=== PATIENT | female | born 1995 | race Hispanic/Latino ===

== ENCOUNTER 2019-11-30 17:19 | Inpatient (IN) | payer MEDICAID ==
[~2019-11-30] VITALS: Ht 162.6 cm; Wt 71.7 kg
[~2019-11-30 17:19] MED LIST: IRON-10 PO
[2019-11-30] MEDS ORDERED: NALOXONE HCL 0.4 MG/1 ML ML IV PRN (18:30)
[2019-11-30] MEDS ORDERED: PROMETHAZINE HCL 25 MG/ML 1ML AMPULE IM PRN (18:30)
[2019-11-30] MEDS ORDERED: ROPIVACAINE 0.2% 100ML VIAL 100 ML EP SCH (18:30)
[2019-11-30] MEDS ORDERED: LACTATED RINGERS 500 ML 500 ML IV PRN (18:30)
[2019-11-30] MEDS ORDERED: EPHEDRINE SULFATE 50 MG/ML AMPULE IVP PRN (18:30)
[2019-11-30] MEDS ORDERED: LACTATED RINGERS 1000ML 1,000 ML IV PRN (18:30)
[2019-11-30] MEDS ORDERED: MEPERIDINE-PF 50 MG/ML SYG IVP PRN (18:30)
[2019-11-30 18:42] LABS: HEMATOCRIT 32.9 % (36-48); MEAN CORPUSCULAR HEMOGLOBIN 23.3 pg (27.0-33.0); MEAN CORPUSCULAR HGB CONC 30.7 g/dL (32.0-36.0); PLATELET COUNT (AUTO) 323 K/uL (130-400); RED BLOOD CELL COUNT(AUTO) 4.33 MIL/uL (4.00-5.50); RED CELL DISTRIBUTION WIDTH 19.6 % (11.0-15.5); WHITE BLOOD COUNT (AUTO) 7.9 K/uL (4.8-10.8)
[2019-11-30 18:44] LABS: APPEARANCE,URINE Clear (CLEAR); BILIRUBIN,URINE Negative (NEGATIVE); COLOR,URINE Yellow (YELLOW); GLUCOSE, URINE (UA) Negative (NEGATIVE); KETONES,URINE Negative (NEGATIVE); LEUKOCYTE ESTERASE ,URINE Small (NEGATIVE); NITRATE,URINE Negative (NEGATIVE); OCCULT BLOOD,URINE Negative (NEGATIVE); PROTEIN,URINE Negative (NEGATIVE)
[2019-11-30 19:09] LABS: BACTERIA,URINE Rare /HPF (None Seen); RBC,URINE 0-1 /HPF (0-1); SQUAMOUS EPITHELIAL CELL,UR Few /HPF (0-2)
[2019-11-30] MEDS ORDERED: OXYTOCIN-LR 20 UNITS/1000 ML 1,000 ML IV SCH (19:30)
[2019-11-30 19:41] LABS: AMPHET/METH SCREEN,URINE NEGATIVE (NEGATIVE); BARBITURATE SCREEN, URINE NEGATIVE (NEGATIVE); BENZODIAZEPINES SCREEN,URINE NEGATIVE (NEGATIVE); CANNABINOID SCREEN,URINE POSITIVE (NEGATIVE); COCAINE SCREEN,URINE NEGATIVE (NEGATIVE); OPIATE SCREEN,URINE NEGATIVE (NEGATIVE); PHENCYCLIDINE SCREEN,URINE NEGATIVE (NEGATIVE)
[2019-11-30 19:45] VITALS: BP 116/68
[2019-11-30] MEDS ORDERED: PREN1CAP34 PO (21:43)
[2019-11-30] MEDS ORDERED: IRON-10 PO (21:43)
[2019-12-01] MEDS ORDERED: LIDOCAINE HCL 1% 20 ML VIAL INJ PRN (11:15)
[2019-12-01] MEDS ORDERED: MISOPROSTOL 200 MCG TABLET ONE (12:53)
[2019-12-01] MEDS ORDERED: METHYLERGONOVINE MALEATE 0.2 MG/1 ML ML ONE ×2 (12:54→13:12)
[2019-12-01] MEDS ORDERED: OXYTOCIN 10 USP UNITS/ML ONE ×2 (12:56→13:21)
[2019-12-01] MEDS ORDERED: TRANEXAMIC ACID 1000MG/10ML ONE (13:00)
[2019-12-01] MEDS ORDERED: CARBOPROST TROMETHAMINE 250 MCG/ML AMP IM ONE (13:01)
[2019-12-01] MEDS ORDERED: IBUPROFEN 600 MG TABLET PO PRN (13:30)
[2019-12-01] MEDS ORDERED: WITCH HAZEL 1 PAD TP PRN (13:30)
[2019-12-01] MEDS ORDERED: MEASLES/MUMPS/RUBELLA VACCINE, LIVE 0.5 ML/VIAL SQ PRN (13:30)
[2019-12-01] MEDS ORDERED: BENZOCAINE/LANOLIN/ALOE VERA 60 ML AEROSOL TP PRN (13:30)
[2019-12-01] MEDS ORDERED: OXYTOCIN-LR 20 UNITS/1000 ML 1,000 ML IV SCH (13:30)
[2019-12-01] MEDS ORDERED: DIPH,PERTUSS(ACELL),TET VAC/PF 0.5 ML VIAL IM PRN (13:30)
[2019-12-01] MEDS ORDERED: LANOLIN 30GM OINTMENT TP PRN (13:30)
[2019-12-01] MEDS ORDERED: ACETAMINOPHEN 325 MG TAB PO PRN (13:30)
[2019-12-01] MEDS ORDERED: ACETAMINOPHEN-CODEINE 300/30MG TAB PO PRN (13:30)
[2019-12-01] MEDS ORDERED: CARBOPROST TROMETHAMINE 250 MCG/ML AMP IM SCH (14:00)
[2019-12-01] MEDS ORDERED: OXYTOCIN 10 USP UNITS/ML IV SCH (14:15)
[2019-12-01] MEDS ORDERED: DIPHENOXYLATE HCL/ATROPINE 2.5/0.025 MG TAB PO PRN ×2 (14:15)
[2019-12-01] MEDS ORDERED: METHYLERGONOVINE MALEATE 0.2 MG/1 ML ML IM SCH (14:37)
[2019-12-01] MEDS ORDERED: MISOPROSTOL 200 MCG TABLET VG SCH (14:38)
[2019-12-01] MEDS: CEFAZOLIN 3GM /D5W 100ML 100 ML IV SCH ×2 (14:45→20:39)
[2019-12-01 15:45] LABS: BASOPHILS % (AUTO) 0.2 % (0.0-5.0); EOSINOPHILS % (AUTO) 0.2 % (0.0-8.0); HEMATOCRIT 28.8 % (36-48); LYMPHOCYTES % (AUTO) 5.5 % (21.0-51.0); MEAN CORPUSCULAR HEMOGLOBIN 23.9 pg (27.0-33.0); MEAN CORPUSCULAR HGB CONC 31.6 g/dL (32.0-36.0); MEAN CORPUSCULAR VOLUME 75.6 fL (79-99); MONOCYTES % (AUTO) 7.2 % (3.0-13.0); NEUTROPHILS % (AUTO) 86.4 % (40.0-77.0); PLATELET COUNT (AUTO) 289 K/uL (130-400); RED BLOOD CELL COUNT(AUTO) 3.81 MIL/uL (4.00-5.50); RED CELL DISTRIBUTION WIDTH 19.6 % (11.0-15.5); WHITE BLOOD COUNT (AUTO) 24.7 K/uL (4.8-10.8)
[2019-12-01 15:54] LABS: INR 0.88 (0.85-1.15); PARTIAL THROMBOPLASTIN TIME 29.4 SEC (26.3-35.5); PROTHROMBIN TIME 9.6 SEC (9.6-11.6)
--- NOTE | 2019-12-01 16:09 | NUR ---
SS Eval Eval deferred pending baby's UDS. SW will continue to follow.
[2019-12-01 19:51] VITALS: BP 118/74
[2019-12-01] MEDS: DOCUSATE SODIUM 100 MG CAP PO SCH (20:39)
[2019-12-01 23:35] VITALS: BP 95/55
[2019-12-02 04:32] VITALS: BP 110/59
[2019-12-02 06:47] LABS: HEMATOCRIT 22.4 % (36-48); MEAN CORPUSCULAR HEMOGLOBIN 23.9 pg (27.0-33.0); MEAN CORPUSCULAR HGB CONC 31.3 g/dL (32.0-36.0); MEAN CORPUSCULAR VOLUME 76.5 fL (79-99); RED BLOOD CELL COUNT(AUTO) 2.93 MIL/uL (4.00-5.50); RED CELL DISTRIBUTION WIDTH 19.6 % (11.0-15.5); WHITE BLOOD COUNT (AUTO) 15.8 K/uL (4.8-10.8)
[2019-12-02 07:29] VITALS: BP_SYST 118; BP_SYST 98; BP_DIAS 65; BP_DIAS 69
[2019-12-02] MEDS: DOCUSATE SODIUM 100 MG CAP PO SCH (09:28)
[2019-12-02 10:13] LABS: HEPATITIS Bs ANTIGEN SCREEN P Negative (Negative)
--- NOTE | 2019-12-02 10:40 | NUR ---
SS Referral for Positive UDS, THC TIFFANY met with pt. who reported that this is third , third delivery and named BG Aurelio Montoya. Pt. is calm, cooperative and appropriate. Pt. reported that she resides at home with spouse and her two children, ages 4y and 3y; Children are current with immunizations and currently being cared for by her mom. Family Literacy Coordinator is Dr. Michael Rae. Pt. is not employed outside the home and spouse is employed at a [employer]. Benefits in place include Medicaid, WIC, and [employer]/400./monthly. All utilities reportedly connected in the home, family has own transportation and carseat in place. There are no smokers in the home. Pt. denied any history of depression, PPD, or Domestic Violence. SW discussed positive UDS with pt. who denied any use of marijuana, instead saying that she was "around it when people were smoking". Pt. denied any use of other illicit substances or etoh. Pt. informed of CPS mandated reporting/process and voiced an understanding, however, reiterating that she has never smoked Marijuana. Pt. reported a strong support system among family and stated that her mother will also assist her with children if needed. SW informed pt. that CPS would follow up post discharge; pt. voiced an understanding. Addendum: 12/02/19 at 1640 by ROD GAYTAN Amended: Links added.
--- NOTE | 2019-12-02 11:25 | NUR ---
CPS Report Report filed by this worker for positive UDS/THC on birthmother. SW informed intake screener/Evelina/Ivette that BG's UDS is currently pending and meconium return will be next week. Per Evelina, this worker is to call Hotline back if Meconium is positive for THC. Reference#[id number]. STANLEY Urena made aware.
[2019-12-02 11:46] VITALS: BP 109/69
--- NOTE | 2019-12-02 12:30 | NUR ---
UDS-STANLEY Urena informed this worker that UDS is negative. Baby to be discharged home with Mom when medically cleared. CPS will follow up with Mom post d/c
--- NOTE | 2019-12-02 14:25 | NUR ---
PATIENT LEFT UNIT VIA WHEELCHAIR WITH BABY IN HAND. PERSONAL VEHICLE USED FOR TRANSPORTATION ACCOMPANIED BY . BABY SECURED IN CARSEAT. NO COMPLAINTS OR CONCERNS ADDRESSED FROM PATIENT ON DISCHARGE.
--- NOTE | 2019-12-02 15:30 | NUR ---
Phone call from Trish/ROGER assigned to case and stated that she will follow up with pt. at home. TIFFANY informed CPS/Trish that baby's UDS was negative and that meconium results would be available next week. Trish stated that she would call this worker next week for meconium results.
== END 2019-12-02 14:25 | disposition home or self-care (01) | DRG 560 ==
LOC: LDH 17:19 → WSH 12-01 17:57
PROVIDERS: ADMIT Obstetrics & Gynecology; ATTEND Obstetrics & Gynecology
PROC: 10E0XZZ Delivery of Products of Conception, External Approach (ICD-10-PCS; principal; 2019-12-01)
PROC: 10907ZC Drainage of Amniotic Fluid, Therapeutic from Products of Conception, Via Natural or Artificial Opening (ICD-10-PCS; 2019-12-01)
PROC: 3E033VJ Introduction of Other Hormone into Peripheral Vein, Percutaneous Approach (ICD-10-PCS; 2019-12-01)
PROC: 0KQM0ZZ Repair Perineum Muscle, Open Approach (ICD-10-PCS; 2019-12-01)
PROC: 6A550ZT Pheresis of Cord Blood Stem Cells, Single (ICD-10-PCS; 2019-12-01)
PROC: 3E0234Z Introduction of Serum, Toxoid and Vaccine into Muscle, Percutaneous Approach (ICD-10-PCS; 2019-12-01)
PROC: 3E0134Z Introduction of Serum, Toxoid and Vaccine into Subcutaneous Tissue, Percutaneous Approach (ICD-10-PCS; 2019-12-01)
DX: O69.81X0 Labor and delivery complicated by cord around neck, without compression, not applicable or unspecified (principal); O72.1 Other immediate postpartum hemorrhage; O70.1 Second degree perineal laceration during delivery; Z37.0 Single live birth; Z3A.39 39 weeks gestation of pregnancy; Z23 Encounter for immunization
CPT/HCPCS: 36415; 80305; 81001; 85025; 85027; 85384; 85610; 85730; 86592; 86850; 86900; 86901; 87340; 90707; 90715; A4314; A4351; G0378; J0690; J2175; J2210; J2550; J2590; J3490; J7120